=== PATIENT | female | born 1960 | race Caucasian/White ===

== ENCOUNTER 2024-03-21 10:27 | Outpatient (REF) | payer OTHER, SELFPAY ==
--- OUTSIDE RECORDS SUMMARY | 2024-03-21 11:45 | XMS_ITS | Data Portability ---
Author Organization [place] - [facility] Formerly [facility], Allergy Address [address] [address] Assessment No assessment recorded. Plan of Treatment Reminders Order Date Submit Date Provider Last Modified By Organization Details Last Modified Time Details Appointments None record ed. Lab None record ed. Referral None record ed. Procedures None record ed. Surgeries None record ed. Imaging None record ed. Medication Orders None record ed. Patient TargetsNo targets recorded. Patient InstructionsNo instructions recorded. Reason for Referral None Reported. Problems Name Problem SNOMED Code Status Onset Date Resolution Date Notes Provider Name and Address Organization Details Recorded Time Laryngoph aryngeal reflux 548081464 Active 2023 KITTY JOAQUIN PA-C [address] [facility],[place] [address], [place], [address] , [place] - [facility] Former[facility] 4 15:04:58 Glossodyn ia 87371638 Active 2023 Glossodyni a (burning mouth/tong ue syndrome); Note: Date Diagnosed: 06/24/2023 10:53 AM (529.6) Glossody dago; Note: Date Diagnosed: 06/24/2023 10:53 AM (K14.6) Not Available [facility] 4 02:31:52 Gastroeso phageal reflux disease without esophagit is 133851214 Active 2023 Gastro-eso phageal reflux disease without esophagiti s; Note: Date Diagnosed: 06/24/2023 10:54 AM (K21.9) Not Available [facility] 4 02:31:53 Bone density finding 987061658 Active 2023 Disorder of bone density and structure, unspecifie d; Note: Date Diagnosed: 06/24/2023 10:54 AM (M85.9) Not Available [facility] 4 02:31:53 Xerostomi a 95867091 Active 2023 Dry mouth, unspecifie d; Note: Date Diagnosed: 06/24/2023 10:53 AM (R68.2) Not Available [facility] 4 02:31:55 Problem Notes None recorded. Medical Equipment None Reported. Medications Name Sig Start Date Stop Date Status Note LastModified by Organization Details LastModified Time multivitam in tablet active Medicatio n ID: [id number] Br and Name: multivita min Send Method: E-Prescri bed Subs Allowed: subs OK Medica tionGener icName: multivita min Not Available Not Available Not Available nystatin 100,000 unit/mL oral suspension SWISH AND SWALLOW 4 ML BY MOUTH 4 TIMES A DAY FOR 7 DAYS active Not Available Not Available No t Available prednisone 10 mg tablet TAKE 4 TABLETS BY MOUTH EVERY DAY FOR 5 DAYS active Not Available Not Available No t Available benzonatat e 200 mg capsule TAKE 1 CAP BY MOUTH 3 TIMES A DAY X7 DAYS NEEDED FOR COUGH active Not Available Not Available No t Available famotidine 40 mg tablet TAKE 1 TABLET BY MOUTH TWICE DAILY X30 DAYS active Not Available Not Available No t Available betamethas one dipropiona te 0.05 % topical cream APPLY TO AFFECTED AREA TWICE A DAY NEEDED active Not Available Not Available No t Available albuterol sulfate HFA 90 mcg/actuat ion aerosol inhaler INHALE 2 PUFFS EVERY 4 HOURS NEEDED FOR WHEEZING/ SHORTNESS OF BREATH active Not Available Not Available No t Available Vitals None Recorded Social History None recorded. Functional Status None recorded. Mental Status None recorded. Family History Nothing Reported. Medical History No medical history recorded. Gynecological HistoryNo gynecological history recorded. Obstetrics History GPAL:G 0 P 0 0 0 0 Past Encounters Encounter ID Performer Location Encounter Start Date Encounter Closed Date Diagnosis/Indication Diagnosis SNOMED-CT Code Diagnosis ICD10 Code Diagnosis Note 1890 KITTY JOAQUIN PA-C [facility] [address] [address] 07/28/2023 15:01:00 07/28/2023 15:50:44 Laryngopharyngeal reflux 597792412 K21.9 Health Concerns Section Related Observation LastModified by Organization Detai ls LastModified Time None Recorded Concern Status LastModified by Organization Details LastModified Time None Recorded Advance Directives Directive None Recorded Payers Encounter Date Sequence Insurance Name Policy Number Policy Meadosw Covered Member ID Meadows Member ID Guarantor Name 07/28/2023 1 [facility] [id number] Krystle Brush [id number] Krystle Brush Notes Date Note Type Note Provider Name and Address Organization Details Recorded Time 07/28/2023 text/html Called patient t o follow up on her oral symptoms. She consents to offsite visit. I am in my office in [facility]. Patient reports she is tolerating the famotidine well. States the sore tongue and white spots have resolved. She has an appointment with gastroenterology later this year and is due for colonoscopy. Has never had EGD. Notes her brother takes famotidine as well. KITTY JOAQUIN PA-C [address] [place] [address],[place] [address], [place], [address], [facility] - [facility] Former[facility] 07/28/2023 15:13:23 OBGyn Episode No OBEpisode recorded.
--- OUTSIDE RECORDS SUMMARY | 2024-03-21 11:45 | XMS_ITS | Clinical Summary ---
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 Active MULTIVITAMIN ORAL 1 qd Active vitamin E, dl, acetate, 90 mg (200 unit) capsule Take 200 Units by mouth daily. Active atorvastatin (LIPITOR) 10 mg tablet Take 1 tablet (10 mg total) by mouth 1 (one) time each day. 90 each 3 03/13/2024 03/08/2025 Active Active Problems Problem Noted Date Diagnosed Date Hyperlipidemia 03/13/2024 Osteopenia 09/29/2021 Bilateral carpal tunnel syndrome 04/28/2021 Chest pain 11/20/2011 Encounters Date Type Department Care Team Description 03/07/2024 8:30 AM EST Office Visit Adult Medicine [facility] [address] [place], [place] [phone] Blanco Esquivel PA Routine general medical examination at a health care facility (Primary Dx); Bilateral hearing loss, unspecified hearing loss type; Screen for colon cancer from Last 3 Months Immunizations Name Administration Dates Next Due Influenza Quadravalent, MDCK , 0.5ml, preservative free (Flucelvax) 6mo and older 02/01/2023 Influenza trivalent, 0.5mL, preservative free (Fluarix; FluLaval; Fluzone) ages 6mo and older (Afluria) 3 years and older 01/17/2014,11/20/2011 Influenza trivalent, MDCK, 0 .5mL, preservative free (Flucelvax) 6mo and older 03/07/2024 Td Tetanus diptheria (Tdvax) 7yo and older 05/13,08/21/1997 Tdap Tetanus diptheria acell ular pertussis (Boostrix; Adacel) 7yo and older 08/06/2006 Surgical History Surgery Date Site/Laterality Comments COLONOSCOPY 10/16/2004 PROCEDURE: HISTORICAL COLONOSCOPY; COMMENT: normal MOLE REMOVAL PROCEDURE: HISTORICAL MOLE (REMOVAL OF); COMMENT: Dysplastic nevus 11/10 abdomen (mild atypia with host lymphocytic response) COLONOSCOPY 10/23/2014 PROCEDURE: HISTORICAL COLONOSCOPY; COMMENT: Normal examination Medical History Medical History Date Comments Mitral valve prolapse 05/25/2011 DX:Mitral valve prolapse Chest pain 11/20/2011 DX:Chest pain History of dysplastic nevus 11/26/2011 DX:H istory of dysplastic nevus; COMMENT: Dysplastic nevus 11/10 abdomen (mild atypia with host lymphocytic response) Bilateral carpal tunnel syndrome 04/28/2021 DX:Bilateral carpal tunnel syndrome Family History Medical History Relation Name Comments Diabetes Maternal Grandfather Hyperlipidemia Mother Heart attack Paternal Grandfather Relation Name Status Comments Maternal Grandfather Mother Paternal Grandfather Social History Tobacco Use Types Packs/Day Years Used Date Smoking Tobacco: Never Smokeless Tobacco: Never Alcohol Use Standard Drinks/Week Comments Yes 0 (1 standard drink = 0.6 oz pur e alcohol) Sex and Gender Information Value Date Recorded Sex Assigned at Not on file Gender Identity Not on file Sexual Orientation Not on file Job Start Date Occupation Industry Not on file Not on file Not on file Obstetrics History Last Filed Vital Signs Vital Sign Reading Time Taken Comments Blood Pressure 112/64 03/07/2024 8:23 AM EST Pulse 60 03/07/2024 8:23 AM EST Temperature 36.3 ??C (97.4 ??F) 03/07/2024 8:23 AM ES T Respiratory Rate 14 03/07/2024 8:23 AM EST Oxygen Saturation 99% 03/07/2024 8:23 AM EST Inhaled Oxygen Concentration - - Weight 63.5 kg (140 lb) 03/07/2024 8:23 AM EST Height 170.2 cm (5' 7 ) 03/07/2024 8:23 AM EST Body Mass Index 21.93 03/07/2024 8:23 AM EST Plan of Treatment Health Maintenance Due Date Last Done Comments Breast Cancer Screening 1960 Zoster Vaccines (1 of 2) 08/11/2011 Cervical Cancer Screening: Pap Smear 07/26/2021 07/26/2018 Depression Screening 02/07/2022 HIV Screening 02/07/2022 Social Influencers of Health Screening 02/07/2022 COVID-19 Vaccine ( season) 2023 03/28/2021, 07/11/2020, 06/13/2020 Colorectal Cancer Screening: Colonoscopy 10/23/2024 10/23/2014 DTaP,Tdap,and Td Vaccines (4 - Td or Tdap) 05/14/2027 05/13/2017, 08/06/2006, 08/21/1997 Cholesterol Screening (Lipid Panel) 03/07/2029 03/07/2024, 09/29/2021 RSV Immunization Patients 60+ Years Old (1 - 1-dose 75+ series) 2036 Hepatitis C Screening Completed 05/13/2017 Influenza Vaccine Completed 03/07/2024, , 01/17/2014, Additional history exists HIB Vaccines Aged Out No longer eligi ble based on patient's age to complete this topic HPV Vaccines Aged Out No longer eligi ble based on patient's age to complete this topic Hepatitis A Vaccines Aged Out No long er eligible based on patient's age to complete this topic Hepatitis B Vaccines Aged Out No long er eligible based on patient's age to complete this topic IPV Vaccines Aged Out No longer eligi ble based on patient's age to complete this topic MMR Vaccines Aged Out No longer eligi ble based on patient's age to complete this topic Meningococcal ACWY Vaccine Aged Out N o longer eligible based on patient's age to complete this topic Pneumococcal Vaccine: Pediatrics (0 to 5 Years) and At-Risk Patients (6 to 64 Years) Aged Out No longer eligible based on patient's age to complete this topic RSV Immunization Patients Under 20 months Aged Out No longer eligible based on patient's age to complete this topic Varicella Vaccines Aged Out No longer eligible based on patient's age to complete this topic Procedures Procedure Name Priority Date/Time Associated Diagnosis Comments COMPLETE BLOOD COUNT Routine 03/07/2024 9:31 AM EST Routine general medical examination at a health care facility Bilateral hearing loss, unspecified hearing loss type Screen for colon cancer COMPREHENSIVE METABOLIC PANEL Routine 03/07/2024 9:31 AM EST Routine general medical examination at a health care facility Bilateral hearing loss, unspecified hearing loss type Screen for colon cancer THYROID STIMULATING HORMONE Routine 03/07/2024 9:31 AM EST Routine general medical examination at a health care facility Bilateral hearing loss, unspecified hearing loss type Screen for colon cancer LIPID PANEL WITH REFLEX TO DIRECT LDL Routine 03/07/2024 9:31 AM EST Routine general medical examination at a health care facility Bilateral hearing loss, unspecified hearing loss type Screen for colon cancer VITAMIN D 25 HYDROXY Routine 03/07/2024 9:31 AM EST Routine general medical examination at a health care facility Bilateral hearing loss, unspecified hearing loss type Screen for colon cancer PAP SMEAR Routine 07/26/2018 HEPATITIS C SCREENING Routine 05/13/2017 COLONOSCOPY Routine 10/23/2014 from Last 3 Months or Most Recently Relevant to Health Maintenance Results * (ABNORMAL) Lipid panel with reflex to direct LDL (03/07/2024 9:31 AM EST) Cholesterol 245(H) 0 - 200 mg/dL LAB CHEMISTRY METHOD 03/07/2024 1:36 PM EST [facility] Triglycerides 64 0 - 150 mg/dL LAB CHEMISTRY METHOD 03/07/2024 1:36 PM EST [facility] HDL 85 >=40 mg/dL LAB CHEMISTRY METHOD 03/07/2024 1:36 PM EST [facility] LDL Calculated 147(H) 0 - 100 mg/dL LAB CHEMISTRY METHOD 03/07/2024 1:36 PM EST [facility] VLDL Cholesterol Kale 12.8 mg/dL LAB CHEMISTRY METHOD 03/07/2024 1:36 PM [facility] Non HDL Chol. (LDL+VLDL) 160(H) <145 mg/dL LAB CHEMISTRY METHOD 03/07/2024 1:36 PM [facility] Chol/HDL Ratio 2.9 0.0 - 4.4 LAB CHEMISTRY METHOD 03/07/2024 1:36 PM [facility] Blood Venous blood specimen / Unknown Venipuncture / Unknown 03/07/2024 9:31 AM EST 03/07/2024 9:31 AM EST [facility] LAB BLOOD ORDERA BLES Performing Organization Address City/[facility]/ZIP Co de Phone Number [facility] [address] [place] [address], [place] [phone] * Vitamin D 25 hydroxy (03/07/2024 9:31 AM EST) Pathologist [facility] Vit D, 25-Hydroxy 37.2 30.0 - 80.0 ng/mL LAB CHEMISTRY METHOD 03/07/2024 1:34 PM EST [facility] Blood Venous blood specimen / Unknown Venipuncture / Unknown 03/07/2024 9:31 AM EST 03/07/2024 9:31 AM EST Bl[facility] ROJAS LAB BLOOD ORDERA BLES [facility] [address] [place] [address], [place] [phone] * Complete blood count (03/07/2024 9:31 AM EST) WBC 5.2 4.8 - 10.8 K/mcL LAB HEMETOLOGY METHOD 03/07/2024 12:30 PM [facility] RBC 4.80 3.80 - 4.80 M/mcL LAB HEMETOLOGY METHOD 03/07/2024 12:30 PM [facility] Hemoglobin 14.7 11.5 - 16.0 g/dL LAB HEMETOLOGY METHOD 03/07/2024 12:30 PM [facility] Hematocrit 44.2 35.0 - 47.0 % LAB HEMETOLOGY METHOD 03/07/2024 12:30 PM [facility] MCV 93.1 79.0 - 98.0 FL LAB HEMETOLOGY METHOD 03/07/2024 12:30 PM [facility] MCH 30.9 27.0 - 32.0 pcg LAB HEMETOLOGY METHOD 03/07/2024 12:30 PM [facility] MCHC 33.3 32.0 - 37.0 g/dL LAB HEMETOLOGY METHOD 03/07/2024 12:30 PM [facility] RDW 13.3 11.0 - 15.0 % LAB HEMETOLOGY METHOD 03/07/2024 12:30 PM [facility] Platelets 245 130 - 400 K/mcL LAB HEMETOLOGY METHOD 03/07/2024 12:30 PM [facility] MPV 11.0 7.0 - 11.0 FL LAB HEMETOLOGY METHOD 03/07/2024 12:30 PM [facility] NRBC 0.0 <1.0 % LAB HEMETOLOGY METHOD 03/07/2024 12:30 PM [facility] NRBC Absolute 0.00 <0.10 K/mcL LAB HEMETOLOGY METHOD 03/07/2024 12:30 PM [facility] Blood Venous blood specimen / Unknown Venipuncture / Unknown 03/07/2024 9:31 AM EST 03/07/2024 9:31 AM EST Bl[facility] ROJAS LAB BLOOD ORDERA BLES Performing Organization Address City/[facility]/ZIP Co de Phone Number [facility] [address] [place] [address], * Thyroid stimulating hormone (03/07/2024 9:31 AM EST) TSH 2.89 0.40 - 4.00 mcIU/mL LAB CHEMISTRY METHOD 03/07/2024 1:34 PM [facility] Blood Venous blood specimen / Unknown Venipuncture / Unknown 03/07/2024 9:31 AM EST 03/07/2024 9:31 AM EST [facility] ROJAS LAB BLOOD ORDERA BLES Performing Organization Address [facility]/ZIP Co de Phone Number [facility] [address] [place] [address], [place] [phone] * Comprehensive metabolic panel (03/07/2024 9:31 AM EST) Sodium 138 133 - 145 mmol/L LAB CHEMISTRY METHOD 03/07/2024 1:27 PM [facility] Potassium 4.2 3.5 - 5.5 mmol/L LAB CHEMISTRY METHOD 03/07/2024 1:27 PM [facility] Chloride 104 96 - 110 mmol/L LAB CHEMISTRY METHOD 03/07/2024 1:27 PM [facility] CO2 27 21 - 32 mmol/L LAB CHEMISTRY METHOD 03/07/2024 1:27 PM [facility] Anion Gap 7 3 - 11 LAB CHEMISTRY METHOD 03/07/2024 1:27 PM [facility] Glucose 98 70 - 100 mg/dL LAB CHEMISTRY METHOD 03/07/2024 1:27 PM [facility] BUN 20 5 - 25 mg/dL LAB CHEMISTRY METHOD 03/07/2024 1:27 PM [facility] Creatinine 0.88 0.50 - 1.10 mg/dL LAB CHEMISTRY METHOD 03/07/2024 1:27 PM [facility] eGFR 74 >=60 mL/min/1. 73m2 LAB CHEMISTRY METHOD 03/07/2024 1:27 PM [facility] Comment:Calculation based on the??Chronic Kidney Disease Epidemiology Collaboration (CKD-EPI) equation refit??without adjustment for race. BUN/Creatinine Ratio 22.7 LAB CHEMISTRY METHOD 03/07/2024 1:27 PM [facility] Calcium 9.2 8.5 - 10.5 mg/dL LAB CHEMISTRY METHOD 03/07/2024 1:27 PM [facility] AST (SGOT) 27 10 - 42 unit/L LAB CHEMISTRY METHOD 03/07/2024 1:27 PM [facility] ALT (SGPT) 24 10 - 60 unit/L LAB CHEMISTRY METHOD 03/07/2024 1:27 PM [facility] Alkaline Phosphatase 80 42 - 121 unit/L LAB CHEMISTRY METHOD 03/07/2024 1:27 PM [facility] Total Protein 7.3 6.0 - 8.0 g/dL LAB CHEMISTRY METHOD 03/07/2024 1:27 PM [facility] Albumin 4.2 3.2 - 5.0 g/dL LAB CHEMISTRY METHOD 03/07/2024 1:27 PM [facility] Total Bilirubin 0.6 0.0 - 1.4 mg/dL LAB CHEMISTRY METHOD 03/07/2024 1:27 PM [facility] Blood Venous blood specimen / Unknown Venipuncture / Unknown 03/07/2024 9:31 AM EST 03/07/2024 9:31 AM EST [facility] ROJAS LAB BLOOD ORDERA BLES [facility] [address] [place] [address], * Pap Smear (07/26/2018) Pap smear No Interpretation , Abstracted Historical Provider MD MARISELA HARDY E * Hepatitis C Screening (05/13/2017) Hepatitis C Screening Abstracted Historical Provider MD MARISELA HARDY E * Colonoscopy (10/23/2014) Colonoscopy No Interpretation , Abstracted Anatomical Region Laterality Modality Other Historical Provider MD MARISELA HARDY E from Last 3 Months or Most Recently Relevant to Health Maintenance Care Teams Petroleum Plant Operator Relationship Specialty Start Date End Date Aretha Mcgovern MD [address] [place] [id number] PCP - General Internal Medicine 05/22/21
--- OUTSIDE RECORDS SUMMARY | 2024-03-21 11:46 | XMS_ITS | Encounter Summary ---
Author Organization [facility] Address [address] [place] [address] Care Team Providers Care Tying Machine Operator Lumber Name Role Phone Aretha Mcgovern MD Primary Care Provider [phone] Reason for Referral * Consultation (Routine) - Authorized Specialty Diagnoses / Procedures Referred By Contac t Referred To Contact Audiology Diagnoses Bilateral hearing loss, unspecified hearing loss type Blanco Esquivel PA [address] [place] [address] Referral ID Status Reason Start Date Expiration Date Visits Requested Visits Authorized [id number] Authorized Specialty Services Required 03/07/2024 03/07/2025 1 1 Scheduling Instructions Ambulatory referral to Audiology * Consultation (Routine) - Denied Specialty Diagnoses / Procedures Referred By Contac t Referred To Contact Gastroenterology Diagnoses Screen for colon cancer Blanco Esquivel PA [address] [place] [address] Joellen Lerner NP [address] [address] Referral ID Status Reason Start Date Expiration Date V isits Requested Visits Authorized [id number] Denied Specialty Services Required 03/07/2024 03/07/2025 1 0 Reason for Visit * Reason Comments Annual Exam Asking for referral for hearing exam. Encounter Details Date Type Department Care Team (Late st Contact Info) Description 03/07/2024 8:30 AM EST Office Visit Adult Medicine [facility] [address] [place] [address] Blanco Esquivel PA [address] [place] [address] Routine general medical examination at a health care facility (Primary Dx); Bilateral hearing loss, unspecified hearing loss type; Screen for colon cancer Social History Tobacco Use Types Packs/Day Years [...] file Not on file Not on file documented as of this encounter Last Filed Vital Signs Vital Sign Reading [...] Mass Index 21.93 03/07/2024 8:23 AM EST documented in this encounter Progress Notes * Елена Anglin MA - 03/07/2024 8:30 AM EST The patient acknowledges that they will be receiving the Tdap (Brand Name Boostrix or Adacel) (Tetanus/Diptheria/Pertussis) vaccine: yes Immunization tab reviewed: It has been at least 9 years since last Tdap vaccine administration. If less than 9 years, provider notified. yes Exception: patients should receive a Tdap with each , preferably during the 3rd trimester. Denies allergy or reaction to previous Tetanus, Diptheria or pertussis vaccination: yes Denies history of Guillain [place] Syndrome.or any type of seizure disorder. yes Patient made aware that they may experience pain/swelling at the site after receiving a Tetanus or Diptheria vaccine. yes Acknowledges reviewing the VIS for Tdap vaccine (copy made available): yes Denies moderate or severe illness or fever of >100 degrees F: yes Patient agrees to wait in the office for 20 minutes after receiving the injection: { yes Tdap vaccine administered IM. See Imm/Inj tab Electronically signed by: Елена Anglin MA 03/07/2024 8:43 AM EST * BOB Grimes - 03/07/2024 8:30 AM EST Images from the original note were not included. Physical Examination Krystle Brush is a 63 y.o. female presenting for Annual Exam (Asking for referral for hearing exam.) Subjective History Of Present Illness: This is a 63-year-old female presenting for physical exam. She works as a field support representative. She has noticed some hearing difficulties over the last few months. Otherwise she has no complaints or concerns otherwise feels well. She is regular with mammograms. She is due for colonoscopy this year. Comprehensive Medical and Social History: Patient Active Problem List Diagnosis Bilateral carpal tunnel syndrome Chest pain Osteopenia No Known Allergies Current Outpatient Medications Medication Instructions calcium carbonate/vitamin D3 (CALTRATE 600 PLUS D ORAL) 1 tab bid CHOLECALCIFEROL, VITAMIN D3, ORAL Take 1 Tab by mouth daily. MULTIVITAMIN ORAL 1 qd vitamin E, dl, acetate, 90 mg (200 unit) capsule Take 200 Units by mouth daily. Past Medical History: Diagnosis Date Bilateral carpal tunnel syndrome 04/28/2021 DX:Bilateral carpal tunnel syndrome Chest pain 11/20/2011 DX:Chest pain History of dysplastic nevus 11/26/2011 DX:History of dysplastic nevus; COMMENT: Dysplastic nevus 11/10 abdomen (mild atypia with host lymphocytic response) Mitral valve prolapse 05/25/2011 DX:Mitral valve prolapse Past Surgical History: Procedure Laterality Date COLONOSCOPY 10/16/2004 PROCEDURE: HISTORICAL COLONOSCOPY; COMMENT: normal COLONOSCOPY 10/23/2014 PROCEDURE: HISTORICAL COLONOSCOPY; COMMENT: Normal examination MOLE REMOVAL PROCEDURE: HISTORICAL MOLE (REMOVAL OF); COMMENT: Dysplastic nevus 11/10 abdomen (mild atypia with host lymphocytic response) Social History Socioeconomic History Marital status: Spouse name: None Number of children: None Years of education: None Highest education level: None Occupational History None Tobacco Use Smoking status: Never Smokeless tobacco: Never Substance and Sexual Activity Alcohol use: Yes Drug use: No Sexual activity: None Other Topics Concern None Social History Narrative None Family History Problem Relation Name Age of Onset Hyperlipidemia Mother Heart attack Paternal Grandfather Diabetes Maternal Grandfather Immunization History Administered Date(s) Administered Influenza Quadravalent, MDCK, 0.5ml, preservative free (Flucelvax) 6mo and older 02/01/2023 Influenza trivalent, 0.5mL, preservative free (Fluarix; FluLaval; Fluzone) ages 6mo and older (Afluria) 3 years and older 11/20/2011, 01/17/2014 Influenza trivalent, MDCK, 0.5mL, preservative free (Flucelvax) 6mo and older 03/07/2024 Moderna SARS-CoV-2 COVID-19, mRNA, LNP-S, preservative free 06/13/2020, 07/11/2020, 03/28/2021 Td Tetanus diptheria (Tdvax) 7yo and older 08/21/1997, 05/13/2017 Tdap Tetanus diptheria acellular pertussis (Boostrix; Adacel) 7yo and older 08/06/2006 Health Maintenance Topic Date Due Breast Cancer Screening Never done Zoster Vaccines (1 of 2) Never done Cervical Cancer Screening: Pap Smear 07/26/2021 Depression Screening Never done HIV Screening Never done Social Influencers of Health Screening Never done COVID-19 Vaccine ( - 2023- season) 2023 Colorectal Cancer Screening: Colonoscopy 10/23/2024 Cholesterol Screening (Lipid Panel) 09/29/2026 DTaP,Tdap,and Td Vaccines (4 - Td or Tdap) 05/14/2027 RSV Immunization Patients 60+ Years Old (1 - 1-dose 75+ series) 2036 Influenza Vaccine Completed Hepatitis C Screening Completed HIB Vaccines Aged Out Hepatitis B Vaccines Aged Out IPV Vaccines Aged Out Hepatitis A Vaccines Aged Out MMR Vaccines Aged Out Varicella Vaccines Aged Out Meningococcal ACWY Vaccine Aged Out HPV Vaccines Aged Out Pneumococcal Vaccine: Pediatrics (0 to 5 Years) and At-Risk Patients (6 to 64 Years) Aged Out RSV Immunization Patients Under 20 months Aged Out Depression Screening (PHQ2/9): Negative screen Anxiety Screening: Negative screen Social Influencer of Health (SIOH): Negative screen Review of Systems: Review of Systems Constitutional: Negative for chills, fever and unexpected weight change. HENT: Negative for ear discharge, ear pain, facial swelling, sinus pain, sore throat and trouble swallowing. Eyes: Negative for discharge and visual disturbance. Respiratory: Negative for cough, chest tightness and shortness of breath. Cardiovascular: Negative for chest pain and leg swelling. Gastrointestinal: Negative for abdominal distention, abdominal pain, blood in stool, diarrhea and nausea. Endocrine: Negative for cold intolerance, heat intolerance, polydipsia and polyuria. Genitourinary: Negative for dysuria and flank pain. Musculoskeletal: Negative for gait problem and joint swelling. Skin: Negative for color change, rash and wound. Breast: Negative for breast lump or mass. Neurological: Negative for dizziness, syncope, facial asymmetry and headaches. Hematological: Negative for adenopathy. Psychiatric/Behavioral: Negative for confusion. Objective BP 112/64 Pulse 60 Temp 36.3 ??C (97.4 ??F) (Temporal) Resp 14 Ht 1.702 m (67 ) Wt 63.5 kg (140 lb) BMI 21.93 kg/m?? SpO2: 99 % Physical Exam Constitutional: General: She is not in acute distress. Appearance: Normal appearance. She is not ill-appearing. HENT: Head: Normocephalic and atraumatic. Right Ear: Tympanic membrane, ear canal and external ear normal. There is no impacted cerumen. Left Ear: Tympanic membrane, ear canal and external ear normal. There is no impacted cerumen. Mouth/Throat: Mouth: Mucous membranes are moist. Pharynx: Oropharynx is clear. No oropharyngeal exudate or posterior oropharyngeal erythema. Eyes: General: No scleral icterus. Right eye: No discharge. Left eye: No discharge. Extraocular Movements: Extraocular movements intact. Conjunctiva/sclera: Conjunctivae normal. Pupils: Pupils are equal, round, and reactive to light. Neck: Vascular: No carotid bruit. Cardiovascular: Rate and Rhythm: Normal rate and regular rhythm. Pulses: Normal pulses. Heart sounds: Normal heart sounds. No murmur heard. Pulmonary: Effort: Pulmonary effort is normal. No respiratory distress. Breath sounds: Normal breath sounds. No wheezing, rhonchi or rales. Abdominal: General: Bowel sounds are normal. There is no distension. Palpations: Abdomen is soft. There is no mass. Tenderness: There is no abdominal tenderness. Hernia: No hernia is present. Musculoskeletal: General: No swelling, tenderness, deformity or signs of injury. Normal range of motion. Cervical back: Normal range of motion and neck supple. No rigidity or tenderness. Right lower leg: No edema. Left lower leg: No edema. Lymphadenopathy: Cervical: No cervical adenopathy. Skin: General: Skin is warm and dry. Capillary Refill: Capillary refill takes less than 2 seconds. Coloration: Skin is not jaundiced. Findings: No bruising, erythema, lesion or rash. Neurological: General: No focal deficit present. Mental Status: She is alert and oriented to person, place, and time. Mental status is at baseline. Coordination: Coordination normal. Gait: Gait normal. Deep Tendon Reflexes: Reflexes normal. Psychiatric: Mood and Affect: Mood normal. Behavior: Behavior normal. Thought Content: Thought content normal. Assessment/Plan Patient completed physical examination today. Health Care Maintenance and Immunizations reviewed. Assessment & Plan Routine general medical examination at a health care facility Orders: Complete blood count; Future Comprehensive metabolic panel; Future Thyroid stimulating hormone; Future Lipid panel with reflex to direct LDL; Future Vitamin D 25 hydroxy; Future Bilateral hearing loss, unspecified hearing loss type Orders: Ambulatory referral to Audiology; Future Complete blood count; Future Comprehensive metabolic panel; Future Thyroid stimulating hormone; Future Lipid panel with reflex to direct LDL; Future Vitamin D 25 hydroxy; Future Screen for colon cancer Orders: Ambulatory referral to Gastroenterology; Future Complete blood count; Future Comprehensive metabolic panel; Future Thyroid stimulating hormone; Future Lipid panel with reflex to direct LDL; Future Vitamin D 25 hydroxy; Future Discussed the patient's BMI with her. The BMI is in the acceptable range. Patient was counseled on the following: Eat healthy foods. Choose fruits, vegetables, whole grains,lean protein, and low-fat dairy foods. Limit saturated fat and reduce salt. Exercise. Get at least 30 minutes of exercise on most days of the week. Walking can be a good choice. Reach and stay at your healthy weight. This will lower your risk for many health problems. Take care of your mental health. Try to stay connected with friends, family, and community, and find ways to manage stress. Avoid tobacco and nicotine: Don't smoke, vape, or chew. If you need help quitting, please do not be afraidto reach out. [place] your teeth twice a day and follow routinely with the dentist. Safety Issues- Always wear a seat belt and a helmet when in a bike or motorcycle. Apply Sunscreen daily to your face and body if appropriate. Aim to get at least 7 hours of sleep to maintain good health and well-being. [facility] [address] [address] Dept: [phone] Dept Date of Service: 03/07/2024 documented in this encounter Plan of Treatment Scheduled Referrals Name Type Priority Associated Diagnoses Order Schedule Ambulatory referral to Gastroenterology Outpatient Referral Routine Screen for colon cancer 1 Occurrences starting 03/07/2024 until 03/07/2025 Ambulatory referral to Audiology Outpatient Referral Routine Bilateral hearing loss, unspecified hearing loss type 1 Occurrences starting 03/07/2024 until 03/07/2025 documented as of this encounter Results * Vitamin D 25 hydroxy (03/07/2024 9:31 AM EST) Vit D, 25-Hydroxy 37.2 30.0 - 80.0 ng/mL LAB CHEMISTRY METHOD 03/07/2024 1:34 PM EST [facility] Blood Venous blood specimen / Unknown Venipuncture / Unknown 03/07/2024 9:31 AM EST 03/07/2024 9:31 AM EST Bl[facility] ROJAS LAB BLOOD ORDERA BLES [facility] [address] [place] [address], [place] [phone] * (ABNORMAL) Lipid panel with reflex to direct LDL (03/07/2024 9:31 AM EST) Cholesterol 245(H) 0 - 200 mg/dL LAB CHEMISTRY METHOD 03/07/2024 1:36 PM EST [facility] Triglycerides 64 0 - 150 mg/dL LAB CHEMISTRY METHOD 03/07/2024 1:36 PM EST [facility] HDL 85 >=40 mg/dL LAB CHEMISTRY METHOD 03/07/2024 1:36 PM EST [facility] LDL Calculated 147(H) 0 - 100 mg/dL LAB CHEMISTRY METHOD 03/07/2024 1:36 PM [facility] VLDL Cholesterol Kale 12.8 mg/dL LAB CHEMISTRY METHOD 03/07/2024 1:36 PM EST [facility] Non HDL Chol. (LDL+VLDL) 160(H) <145 mg/dL LAB CHEMISTRY METHOD 03/07/2024 1:36 PM EST [facility] Chol/HDL Ratio 2.9 0.0 - 4.4 LAB CHEMISTRY METHOD 03/07/2024 1:36 PM [facility] Blood Venous blood specimen / Unknown Venipuncture / Unknown 03/07/2024 9:31 AM EST 03/07/2024 9:31 AM EST Blanco ROJAS LAB BLOOD ORDERA BLES [facility] [address] [place] [address], [place] [phone] * Thyroid stimulating hormone (03/07/2024 9:31 AM EST) Pathologist [facility] TSH 2.89 0.40 - 4.00 mcIU/mL LAB CHEMISTRY METHOD 03/07/2024 1:34 PM EST [facility] Blood Venous blood specimen / Unknown Venipuncture / Unknown 03/07/2024 9:31 AM EST 03/07/2024 9:31 AM EST Blanco ROJAS LAB BLOOD ORDERA BLES [facility] [address] [place] [address], * Comprehensive metabolic panel (03/07/2024 9:31 AM EST) Pathologist [facility] Sodium 138 133 - 145 mmol/L LAB CHEMISTRY METHOD 03/07/2024 1:27 PM [facility] Potassium 4.2 3.5 - 5.5 mmol/L LAB CHEMISTRY METHOD 03/07/2024 1:27 PM [facility] Chloride 104 96 - 110 mmol/L LAB CHEMISTRY METHOD 03/07/2024 1:27 PM [facility] CO2 27 21 - 32 mmol/L LAB CHEMISTRY METHOD 03/07/2024 1:27 PM [facility] Anion Gap 7 3 - 11 LAB CHEMISTRY METHOD 03/07/2024 1:27 PM [facility] Glucose 98 70 - 100 mg/dL LAB CHEMISTRY METHOD 03/07/2024 1:27 PM [facility] BUN 20 5 - 25 mg/dL LAB CHEMISTRY METHOD 03/07/2024 1:27 PM [facility] Creatinine 0.88 0.50 - 1.10 mg/dL LAB CHEMISTRY METHOD 03/07/2024 1:27 PM [facility] eGFR 74 >=60 mL/min/1. 73m2 LAB CHEMISTRY METHOD 03/07/2024 1:27 PM [facility] Comment:Calculation based on the??Chronic Kidney Disease Epidemiology Collaboration (CKD-EPI) equation refit??without adjustment for race. BUN/Creatinine Ratio 22.7 LAB CHEMISTRY METHOD 03/07/2024 1:27 PM [facility] Calcium 9.2 8.5 - 10.5 mg/dL LAB CHEMISTRY METHOD 03/07/2024 1:27 PM [facility] AST (SGOT) 27 10 - 42 unit/L LAB CHEMISTRY METHOD 03/07/2024 1:27 PM [facility] ALT (SGPT) 24 10 - 60 unit/L LAB CHEMISTRY METHOD 03/07/2024 1:27 PM [facility] Alkaline Phosphatase 80 42 - 121 unit/L LAB CHEMISTRY METHOD 03/07/2024 1:27 PM [facility] Total Protein 7.3 6.0 - 8.0 g/dL LAB CHEMISTRY METHOD 03/07/2024 1:27 PM [facility] Albumin 4.2 3.2 - 5.0 g/dL LAB CHEMISTRY METHOD 03/07/2024 1:27 PM [facility] Total Bilirubin 0.6 0.0 - 1.4 mg/dL LAB CHEMISTRY METHOD 03/07/2024 1:27 PM [facility] Blood Venous blood specimen / Unknown Venipuncture / Unknown 03/07/2024 9:31 AM EST 03/07/2024 9:31 AM EST Blanco ROJAS LAB BLOOD ORDERA BLES [facility] [address] [place] [address], * Complete blood count (03/07/2024 9:31 AM EST) WBC 5.2 4.8 - 10.8 K/mcL LAB HEMETOLOGY METHOD 03/07/2024 12:30 PM [facility] RBC 4.80 3.80 - 4.80 M/mcL LAB HEMETOLOGY METHOD 03/07/2024 12:30 PM [facility] Hemoglobin 14.7 11.5 - 16.0 g/dL LAB HEMETOLOGY METHOD 03/07/2024 12:30 PM [facility] Hematocrit 44.2 35.0 - 47.0 % LAB HEMETOLOGY METHOD 03/07/2024 12:30 PM [facility] MCV 93.1 79.0 - 98.0 FL LAB HEMETOLOGY METHOD 03/07/2024 12:30 PM [facility] MCH 30.9 27.0 - 32.0 pcg LAB HEMETOLOGY METHOD 03/07/2024 12:30 PM [facility] MCHC 33.3 32.0 - 37.0 g/dL LAB HEMETOLOGY METHOD 03/07/2024 12:30 PM [facility] RDW 13.3 11.0 - 15.0 % LAB HEMETOLOGY METHOD 03/07/2024 12:30 PM [facility] Platelets 245 130 - 400 K/mcL LAB HEMETOLOGY METHOD 03/07/2024 12:30 PM [facility] MPV 11.0 7.0 - 11.0 FL LAB HEMETOLOGY METHOD 03/07/2024 12:30 PM [facility] NRBC 0.0 <1.0 % LAB HEMETOLOGY METHOD 03/07/2024 12:30 PM [facility] NRBC Absolute 0.00 <0.10 K/mcL LAB HEMETOLOGY METHOD 03/07/2024 12:30 PM [facility] Blood Venous blood specimen / Unknown Venipuncture / Unknown 03/07/2024 9:31 AM EST 03/07/2024 9:31 AM EST Blanco ROJAS LAB BLOOD ORDERA BLES [facility] [address] [place] [address], documented in this encounter Visit Diagnoses Diagnosis Routine general medical examination at a health care facility- Primary Bilateral hearing loss, unspecified hearing loss type Screen for colon cancer Special screening for malignant neoplasms, colon documented in this encounter Orders Immunization/Injection Count Last Ordered Date First Ordered Date INFLUENZA TRIVALENT, MDCK, 0 .5ML, PRESERVATIVE FREE (FLUCELVAX) 6MO AND OLDER 1 03/07/2024 documented in this encounter Care Teams Tying Machine Operator Lumber Relationship Specialty Start Date End Date Aretha Mcgovern MD [address] [place] [address] PCP - General Internal Medicine 05/22/21 documented as of this encounter
== END 2024-03-21 10:28 | disposition home or self-care (01) ==
LOC: HO.SH 10:27
PROVIDERS: Visit Provider Physician Assistant Medical
DX: Z01.118 Encounter for examination of ears and hearing with other abnormal findings (principal); H90.3 Sensorineural hearing loss, bilateral
CPT/HCPCS: 92557; 92567